=== PATIENT | male | born 1985 | race Caucasian/White ===

== ENCOUNTER 2020-03-26 11:15 | Emergency (ER) | payer SELFPAY ==
[2020-03-26 11:38] VITALS: BP 131/93; PULSE 101; RESP 20; TEMP 37.8; O2SAT 99
--- NOTE | 2020-03-26 11:53 | ED.GENADULT ---
HPI - General Adult General Chief complaint: Skin/Abscess/Foreign Body Stated complaint: bumps on skin Time Seen by Provider: 03/26/20 11:54 Source: patient and RN notes reviewed Mode of arrival: ambulatory Limitations: no limitations History of Present Illness HPI narrative: 34-year-old male presents with complaints of diffused red, raised, and itching rash for the past 3 days. [place] reports possible reaction to blueberry pop-tarts or deer sticks he ate. Report rash spreads throughout body daily with increase itching and redness. Benadryl, last this morning at 06:00 with little relief. Has a dog. Denies new changes in personal hygiene products or laundry detergent. No new other new foods or medications. No swelling, burning, bleeding, or drainage. Denies fever, headaches, myalgia, facial swelling, or tongue swelling. Denies chest pain or dyspnea. Tolerating po intake well. The patient reports he have not been diagnosed with COVID-19. The patient reports he is not waiting for the results of a COVID-19 lab test. The patient reports he do not have chills, weakness, or fatigue. The patient reports he do not have a new or worsening cough or shortness of breath. The patient reports he do not have any rhinorrhea, congestion, loss of taste or smell, sore throat, nausea, vomiting, abdominal pain, and diarrhea. Denies recent traveling. Denies concerns for COVID-19 or exposures been home with limited outdoor exposure except for essential household needs, work, and return home. At this time, patient is not suspected of having COVID-19. Some parts of this dictation were generated by voice recognition software and may contain typographical and/or grammatical inaccuracies. Related Data Allergies Allergy/AdvReac Type Severity Reaction Status Date / Time SOUR CREAM Allergy Severe RASH, Uncoded 08/10/07 13:23 THROAT SWELLING NKDA Allergy Mild Uncoded 08/10/07 06:31 Review of Systems Review of Systems: Narrative: CONSTITUTIONAL: Denies fever, chills, sweats. EYES: Denies visual changes, redness, discharge. ENT: Denies rhinorrhea, congestion, sore throat, otalgia. CARDIOVASCULAR: Denies chest pain, palpitations, edema. RESPIRATORY: Denies dyspnea, wheezing, cough. GASTROINTESTINAL: Denies abdominal pain, nausea, vomiting, diarrhea. GENITOURINARY: Denies dysuria, hematuria, abnormal discharge. SKIN: Complains of diffused red, raised, and itching rash. Denies drainage. MUSCULOSKELETAL: Denies acute back pain, joint pain, or myalgia. NEUROLOGIC: Denies numbness or focal weakness. PSYCHIATRIC: Denies anxiety or depression. All other systems reviewed & are unremarkable except as noted in HPI and below. [facility] Past Medical History Medical History (Updated 03/26/20 @ 18:46 by AYALA Briseno) Acute appendicitis Allergies Surgical History Surgical History (Updated 03/26/20 @ 16:35 by AYALA Briseno) Hx of appendectomy Family History Family History (Updated 03/26/20 @ 16:37 by AYALA Briseno) Father Diabetes mellitus Hypertension Mother Hypertension Social History Social History (Updated 03/26/20 @ 16:39 by AYALA Briseno) Smoking status: Current every day smoker Tobacco type: e-cigarettes/vaping Second hand tobacco smoke exposure: No Alcohol intake: former Alcohol use details: With 8 to 9 years ago Substance use: current Substance use type: marijuana Living arrangements: with family Occupation/Education: occupation Gender identity (if verbalized by the patient): Male Comments At time of signature, agree with nurse past medical, surgical, social, and family history. There is no relevant family history pertinent to the presenting complaint. Exam Narrative: Exam Narrative: GENERAL: This is a well-nourished, well-developed patient, in no apparent distress. Talking in full sentences without deficit and ambulate with steady gait without dyspnea. HEAD:
== END 2020-03-26 12:19 | disposition home or self-care (01) ==
PROVIDERS: Emergency Provider Nurse Practitioner Family
DX: L30.9 Dermatitis, unspecified (principal); F17.200 Nicotine dependence, unspecified, uncomplicated
CPT/HCPCS: 99213; G0463